=== PATIENT | female | born 1975 | race Caucasian/White ===

== ENCOUNTER 2018-03-14 09:45 | Outpatient (RCR) | payer OTHER, SELFPAY ==
--- NOTE | 2018-02-28 11:03 | PT.OTN ---
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 All documentation prior to February 26 can be found under [employer] saved data. From February 26 forward all medical record documentation will be in [employer] 6.1.
--- NOTE | 2018-02-28 11:24 | PT.OTN ---
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 She does have more anterior abdominal/ pelvic symptoms on the left side today. 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 -Patient Reported Progress Improving PT-OP-Q Treatments Start: 02/28/18 11:09 Freq: Status: Active Protocol: Activity Type Activity Date Activity User E-Sign Co-Sign Detail Recorded Client Recorded Date Recorded By Document 02/28/18 11:09 [facility] [email or web address] 02/28/18 11:22 [facility] 02/28/18 11:09 Manual Therapy Treatment [Soft Tissue Mobilization] 2 -Body Location Levator ani -Mobilization Type Myofascial Release -Intensity/Depth Moderate -Body Position Supine -Comments MFR to the left illiococcygeus musculature, contract relax with manual stretching to the left lateral chávez of the levator ani. 1 -Body Location abdominal -Mobilization Type Myofascial Release -Intensity/Depth Moderate -Body Position Supine -Comments MFR to the abdominal wall, ILU massage over the colon and MFR to the fascia over the left descending colon Self-Care/Home Management Treatment [Education] -Patient Education Home Exercise Program -Other Education dilator use instructions PT-OP-R Modalities Start: 02/28/18 11:09 Freq: Status: Active Protocol: Activity Type Activity Date Activity User E-Sign Co-Sign Detail Recorded Client Recorded Date Recorded By Document 02/28/18 11:09 [facility] [email or web address] 02/28/18 11:22 [facility] 02/28/18 11:09 Ultrasound Therapy [Treatment] left anterior abdominal fascia -Treatment Duration (minutes) 8 -Patient Position Supine -Coupling Medium Ultrasound Gel -Frequency Setting (mHz) 1 -Mode Setting Continuous -Intensity Setting (w/cm2) 1.5 -Patient Tolerance Good PT-OP-T Assessment and Plan Start: 02/28/18 11:09 Freq: Status: Active Protocol: Activity Type Activity Date Activity User E-Sign Co-Sign Detail Recorded Client Recorded Date Recorded By Document 02/28/18 11:09 [facility] [email or web address] 02/28/18 11:22 [facility] 02/28/18 11:09 Physical Therapy Assessment [Assessment Summary] -Assessment Sana has made good progress so far with pelvic floor relaxation. She was a little tighter today in the left abdominal fascia over the descending colon. She does have colitis in this region so I am not sure if she was having a flare up today. She is a jaw clencher and I think this translates to her pelvic floor as well. She is doing well with her home stretching program and adding in YOGA 2 times per week. We discussed using the dilator 2 times per week as well. Physical Therapy Plan [Frequency and Duration] -Frequency of Treatment 1x/Week [Therapeutic Interventions] -Therapeutic Interventions Home Exercise Program Manual Therapy Neuromuscular Re-education Patient/ Caregiver Education Self-Care/Home Management Soft Tissue Mobilization Therapeutic Exercises -Modalities Biofeedback Ultrasound [Next Visit Focus/Plan] -Next Visit Plan recheck pelvic floor strength with EMG biofeedback and reassess left lateral wall of the pelvic floor
--- NOTE | 2018-03-14 16:57 | PT.OTN ---
Current Diagnoses Urethral syndrome, unspecified (03/14/18) Physical Therapy Treatment Note PT-OP-A Visit Information Start: 02/28/18 11:09 Freq: Status: Active Protocol: Document 02/28/18 11:09 [facility] (Rec: 02/28/18 11:22 [facility] [email or web address]) Out-Patient Physical Therapy Visit Information Visit Information Visit Type Treatment Note Visit Start Time 09:45 Visit Stop Time 10:30 Total Visit Minutes 45 Visit Number 5 Number of T[employer] TECHNICIAN Visits 0 PT-OP-C Subjective Start: 02/28/18 11:09 Freq: Status: Active Protocol: Document 03/14/18 16:46 [facility] (Rec: 03/14/18 16:56 [facility] [email or web address]) OP-PT Subjective Patient Comments Patient Comments Sana reports she feels comfortable with her home stretching program for pelvic pain. She has been going to a yoga class and has tolerated this well but the last class she went to did a lot of planks and this caused increased neck and shoulder pain and she experienced a flare up of her left sided pelvic pain. It has calmed down today but is still sore Patient Reported Progress Improving PT-OP-I Pelvic Floor Start: 02/28/18 11:09 Freq: Status: Active Protocol: Document 02/28/18 11:09 [facility] (Rec: 02/28/18 11:22 [facility] [email or web address]) Pelvic Floor Assessment Pelvic Clock Pelvic Clock 3-6 Guarding Pelvic Clock Other some guarding present on the left lateral wall of the levator ani, this was released with manual treatment today and was much more relaxed following treatment PT-OP-Q Treatments Start: 02/28/18 11:09 Freq: Status: Active Protocol: Document 03/14/18 16:46 [facility] (Rec: 03/14/18 16:56 [facility] [email or web address]) Manual Therapy Treatment Soft Tissue Mobilization 2 Body Location Levator ani Mobilization Type Myofascial Release Intensity/Depth Moderate Body Position Supine Comments MFR to the left illiococcygeus musculature, contract relax with manual stretching to the left lateral chávez of the levator ani. 1 Body Location abdominal Mobilization Type Myofascial Release Intensity/Depth Moderate Body Position Supine Comments MFR to the abdominal wall, ILU massage over the colon and MFR to the fascia over the left descending colon PT-OP-R Modalities Start: 02/28/18 11:09 Freq: Status: Active Protocol: Document 03/14/18 16:46 [facility] (Rec: 03/14/18 16:56 [facility] [email or web address]) Ultrasound Therapy Treatment left anterior abdominal fascia Treatment Duration (minutes) 8 Patient Position Supine Coupling Medium Ultrasound Gel Frequency Setting (mHz) 1 Mode Setting Continuous Intensity Setting (w/cm2) 1.5 Patient Tolerance Good PT-OP-T Assessment and Plan Start: 02/28/18 11:09 Freq: Status: Active Protocol: Document 03/14/18 16:46 [facility] (Rec: 03/14/18 16:56 [facility] [email or web address]) Physical Therapy Assessment Progress Towards Goals Progress Comments Sana has made overall good progress and was seen for a total of 7 visits in PT. She has tried to go back to exercises classes at the gym but some of them are too aggressive and she ends up in more pain. We discussed ways to modify if she wants to continue doing classes at the gym but to hold off on classes that cause her pain. Overall Sana's resting today has been reduced in the pelvic floor and she is using the dilator when needed for self release of the pelvic floor. She is undergoing jaw surgery in the next few weeks so she will be discharged from PT at this time. I would be happy to continue care for her in the future should she need any further PT. Physical Therapy Plan Discharge Physical Therapy Discharge Comments Discharge as the patient has completed her current program and is independent with a home program
== END 2018-06-03 14:39 ==
LOC: PHYS 09:45
PROVIDERS: Family Provider Obstetrics & Gynecology; PCP Obstetrics & Gynecology; Visit Provider Obstetrics & Gynecology
DX: N34.3 Urethral syndrome, unspecified (principal)
CPT/HCPCS: 97035; 97140

== ENCOUNTER 2018-04-29 12:16 | Emergency (ER) | payer OTHER, SELFPAY ==
--- NOTE | 2018-04-29 12:16 | ED_ITS ---
HPI - Abdominal Pain <HUDSON Saavedra - Last Filed: 04/29/18 22:32> General Chief Complaint: Abdominal Pain Stated Complaint: ABDOMINAL PAIN, LEFT SIDE Time Seen by Provider: 04/29/18 12:16 History of Present Illness HPI narrative: 42-year-old female here for complaint of having lower bilateral abdominal pain over the past 6 days. She states during that timeframe she has had chills although she does not know if she has had a fever. She denies any urinary symptoms. She reports that her last bowel movement was earlier today and was normal. No flank pain. She reports that she recently had surgery 1 month ago where she had TMJ repair where they did take some tissue from her abdomen to complete the TMJ repair. She denies any complications with either incision areas. She denies any trauma to the abdomen. She denies any abnormal vaginal discharge or bleeding. MD complaint: abdominal pain Related Data Home Medications Medication Instructions Recorded Confirmed bupropion HCl [Wellbutrin XL] 300 mg PO QDAY #0 09/28/17 04/29/18 clonazepam [Klonopin] 0.5 mg PO QPM #0 09/28/17 04/29/18 sulfasalazine 2 tab PO BID #0 09/28/17 04/29/18 ibuprofen 1 dose PO PRN PRN 04/29/18 04/29/18 montelukast [Singulair] 10 mg PO QPM 04/29/18 04/29/18 oxycodone-acetaminophen 1 tab PO Q4H PRN 04/29/18 04/29/18 Previous Rx's Medication Instructions Recorded etonogestrel-ethinyl estradiol 1 units VAGINAL SI #1 units 10/17/17 [NuvaRing] ciprofloxacin HCl 500 mg PO BID #14 tab 04/29/18 metronidazole 500 mg PO TID #21 tab 04/29/18 Allergies Allergy/AdvReac Type Severity Reaction Status Date / Time No Known Allergies Allergy Uncoded 02/06/18 12:49 Review of Systems <HUDSON Saavedra - Last Filed: 04/29/18 22:32> Constitutional Reports chills, Denies lethargy and Denies weakness Eyes Denies change in vision, Denies eye discharge, Denies irritation and Denies loss of vision ENT Ears, Nose, Mouth, and Throat: Denies change in voice, Denies neck pain and Denies sore throat Cardiovascular Denies chest pain, Denies irregular heart rhythm, Denies lightheadedness, Denies palpitations, Denies dyspnea, Denies dyspnea on exertion and Denies orthopnea Respiratory Denies cough, Denies dyspnea, Denies dyspnea on exertion and Denies wheezing Gastrointestinal Gastrointestinal: Reports abdominal pain, Denies change in bowel habits, Denies diarrhea, Denies nausea and Denies vomiting Genitourinary Denies hematuria, Denies flank pain, Denies urinary incontinence and Denies urinary urgency Musculoskeletal Denies neck pain Integumentary/Breasts Denies pruritus, Denies erythema, Denies rash and Denies wounds Neurologic Denies confusion, Denies loss of vision and Denies weakness Psychiatric Denies anxiety, Denies confusion, Denies depression, Denies homicidal ideation and Denies suicidal ideation Endocrine Denies palpitations Allergic/Immunologic Denies wheezing Exam <HUDSON Saavedra - Last Filed: 04/29/18 22:32> Initial Vital Signs Initial Vital Signs: Vital Signs Temperature 96.9 F L 04/29/18 12:47 Pulse Rate 88 04/29/18 12:47 Respiratory Rate 13 04/29/18 12:47 Blood Pressure 128/42 H 04/29/18 12:47 Pulse Oximetry 100 04/29/18 12:47 Const General: cooperative and well developed Nutritional Appearance: well nourished Orientation: alert, awake, oriented x3 and not confused [facility] Mouth: oral mucosae normal and moist mucous membranes Eyes Conjunctivae: conjunctivae normal Sclera: sclerae normal Pupils: PERRL EOM: EOM intact bilaterally Resp Effort & Inspection: normal respiratory effort, able to speak in complete sentences, no respiratory distress and no use of accessory muscles Auscultation: clear to auscultation bilaterally, no rales, no rhonchi and no wheezes Cardio Rate: regular rate Rhythm: regular rhythm Heart Sounds: no click, no gallops, no murmurs and no rubs GI Inspection: non-distended Palpation: soft, no hepatosplenomegaly, No guarding, No pulsatile mass and tender (Bilateral lower quadrant tenderness on palpation) Auscultation: normal bowel sounds General: No CVA tenderness Skin General: no rashes or lesions noted, No jaundice and No petechiae <Charanjit Dominguez DO - Last Filed: 05/06/18 07:13> Initial Vital Signs Initial Vital Signs: Vital Signs Temperature 96.9 F L 04/29/18 12:47 Pulse Rate 88 04/29/18 12:47 Respiratory Rate 13 04/29/18 12:47 Blood Pressure 128/42 H 04/29/18 12:47 Pulse Oximetry 100 04/29/18 12:47 Course <HUDSON Saavedra - Last Filed: 04/29/18 22:32> Orders Ordered: Discontinued Medications Hydromorphone HCl (Dilaudid) 0.5 mg IV NOW ONE Stop: 04/29/18 12:52 Last Admin: 04/29/18 13:32 Dose: 0.5 mg Sodium Chloride (Normal Saline 0.9%) 1,000 mls @ 1,000 mls/hr IV BOLUS ONE Stop: 04/29/18 13:50 Last Infusion: 04/29/18 15:08 Dose: 0 mls/hr Infusion: 04/29/18 14:30 Dose: 1,000 mls/hr Infusion: 04/29/18 14:07 Dose: 0 mls/hr Admin: 04/29/18 13:32 Dose: 1,000 mls/hr Ondansetron HCl (Zofran) 4 mg IV NOW ONE Stop: 04/29/18 12:52 Last Admin: 04/29/18 13:32 Dose: 4 mg Vital Signs - 8 hr 04/29/18 12:47 04/29/18 14:22 Temperature 96.9 F L Pulse Rate 88 76 Respiratory Rate 13 14 Blood Pressure 128/42 H Blood Pressure [Right Arm] 129/56 H Pulse Oximetry 100 100 <Charanjit Dominguez DO - Last Filed: 05/06/18 07:13> Orders Ordered: Discontinued Medications Hydromorphone HCl (Dilaudid) 0.5 mg IV NOW ONE Stop: 04/29/18 12:52 Last Admin: 04/29/18 13:32 Dose: 0.5 mg Sodium Chloride (Normal Saline 0.9%) 1,000 mls @ 1,000 mls/hr IV BOLUS ONE Stop: 04/29/18 13:50 Last Infusion: 04/29/18 15:08 Dose: 0 mls/hr Infusion: 04/29/18 14:30 Dose: 1,000 mls/hr Infusion: 04/29/18 14:07 Dose: 0 mls/hr Admin: 04/29/18 13:32 Dose: 1,000 mls/hr Ondansetron HCl (Zofran) 4 mg IV NOW ONE Stop: 04/29/18 12:52 Last Admin: 04/29/18 13:32 Dose: 4 mg Vital Signs - 8 hr 04/29/18 12:47 04/29/18 14:22 Temperature 96.9 F L Pulse Rate 88 76 Respiratory Rate 13 14 Blood Pressure 128/42 H Blood Pressure [Right Arm] 129/56 H Pulse Oximetry 100 100 MDM - Abdominal Pain <HUDSON Saavedra - Last Filed: 04/29/18 22:32> Lab Data Result diagrams: 04/29/18 13:24 04/29/18 13:24 Lab Results 04/29/18 04/29/18 Range/Units 13:24 13:24 WBC 5.6 (4.5-11.0) X10^3/uL RBC 3.60 L (4.0-5.2) X10^6/uL Hgb 11.3 L (12.0-16.0) g/dL Hct 33.2 L (36-46) % MCV 92.2 (80-100) fL MCH 31.5 (26-34) PG MCHC 34.1 (30-36) % RDW 11.9 (11.6-14.8) % Plt Count 240 (150-400) X10^3/uL Neut % (Auto) 66.6 (50-75) % Lymph % (Auto) 24.0 L (25-40) % Divide % (Auto) 6.9 (3-14) % Eos % (Auto) 2.0 (2-4) % Baso % (Auto) 0.5 (0-2) % Neut # (Auto) 3700 (0825-3044) /uL Sodium 140 (137-145) mmol/L Potassium 3.9 (3.4-5.1) mmol/L Chloride 111 H (98-107) mmol/L Carbon Dioxide 23 (22-32) mmol/L BUN 6 L (7-17) mg/dL Creatinine 0.70 (0.52-1.04) mg/dL Estimated GFR > 60.0 (>60) mL/min BUN/Creatinine Ratio 8.6 (6-22) Glucose 84 (70-100) mg/dL Calcium 8.7 (8.4-10.2) mg/dL Total Bilirubin 0.4 (0.2-1.3) mg/dL AST 17 (14-36) IU/L ALT 28 (9-52) IU/L Alkaline Phosphatase 84 (38-126) U/L Total Protein 6.2 L (6.3-8.2) g/dL Albumin 3.3 L (3.5-5.0) g/dL Globulin 2.9 (1.7-4.1) g/dL Albumin/Globulin Ratio 1.1 (1.0-2.8) Lipase 249 (23-300) U/L Point of care testing: Point of Care Testing Test Results Negative Urine Dip Bedside Urine Glucose Negative Bedside Urine Bilirubin - Negative Bedside Urine Ketone - Negative Urine Specific Ripley 1.020 Bedside Urine Occult Blood - Negative Bedside Urine pH 6.0 Bedside Urine Protein - Negative Bedside Urine Urobilinogen - Negative Bedside Urine Nitrite - Negative Bedside Urine Leukocytes - Negative Esterase Imaging Data CT scan - abdomen: Radiologist's impression: PROCEDURE: CT ABDOMEN PELVIS W CON INDICATIONS: Bilateral lower abdominal pain TECHNIQUE: After the administration of oral and intravenous contrast, 5 mm thick sections acquired from the diaphragms to the symphysis. 5 mm thick coronal and sagittal reformats were performed. For radiation dose reduction, the following was used: automated exposure control, adjustment of mA and/or kV according to patient size. COMPARISON: [facility], CT, ABDOMEN/PELVIS WITH CONTRAST, 09/28/2017, 13: 45. FINDINGS: Image quality: Diagnostic. ABDOMEN: Lung bases: Lung bases are clear. Heart size is normal. Solid organs: The liver, spleen, adrenals, pancreas, and kidneys are similar to the previous examination. A small cyst involving the left hepatic lobe is unchanged. The gallbladder does not appear to be inflamed. There is no hydronephrosis of the kidneys. Mild prominence of the right ureter is present. No ureteral calculi are evident. Peritoneum and bowel: The stomach, duodenum and remainder of the small bowel loops are nondilated. Moderate residual stool is seen within the colon. However, the sigmoid colon is decompressed, exaggerating the appearance of the wall of the sigmoid colon. No definitive surrounding mesenteric inflammation is evident. The appendix is not definitely seen. There is no bowel obstruction. No free fluid, loculated fluid collection or free air is evident. There is a small fat-containing periumbilical hernia. Nodes and vessels: No retroperitoneal or mesenteric adenopathy. Aorta and inferior vena cava are normal in caliber. Bones: No acute fractures or suspicious osseous lesions are identified. No significant degenerative changes of the imaged spine are present. PELVIS: Genitourinary: Bladder wall thickness is normal. The uterus and ovaries do not appear to be enlarged. No definite ovarian cysts are appreciated. A pessary device appears to be present within the vagina. Intrauterine contraceptive device has been removed in the interim. Miscellaneous: No inguinal hernias or adenopathy. No loculated fluid collections are evident. There is no free air. No free fluid is evident. Bones: No suspicious bony lesions. No acute pelvic fractures are evident. IMPRESSION: 1. Unremarkable abdomen and pelvis CT. No definite acute abnormality is suspected were evident. 2. Mild prominence of the wall of the sigmoid colon likely is related to incomplete distention. Colitis may have this appearance. There is no bowel obstruction. Please correlate clinically. 3. No hydronephrosis of the kidneys. 4. Simple hepatic cyst is unchanged. Dictated by: Jaison Arauz M.D. on 04/29/2018 at 13:30 Approved by: Jaison Arauz M.D. on 04/29/2018 at 13:35 MDM Narrative Medical decision making narrative: CBC shows mild anemia otherwise is unremarkable. Chem panel and lipase were obtained and unremarkable. Negative POC for urinalysis and . CT of the abdomen was obtained and shows some thickening of the sigmoid colon indicating possible colitis. Patient states that she has a history of ulcerative colitis. She is currently waiting to get in to Gastroenterology. Will empirically treat with Cipro and metronidazole. Currently used pain management regimen as needed for any discomfort. Follow up with primary care provider in the next few weeks. Follow up with Gastroenterology. For any worsening symptoms return to the emergency room. <Charanjit Dominguez DO - Last Filed: 05/06/18 07:13> Lab Data Lab Results 04/29/18 04/29/18 Range/Units 13:24 13:24 WBC 5.6 (4.5-11.0) X10^3/uL RBC 3.60 L (4.0-5.2) X10^6/uL Hgb 11.3 L (12.0-16.0) g/dL Hct 33.2 L (36-46) % MCV 92.2 (80-100) fL MCH 31.5 (26-34) PG MCHC 34.1 (30-36) % RDW 11.9 (11.6-14.8) % Plt Count 240 (150-400) X10^3/uL Neut % (Auto) 66.6 (50-75) % Lymph % (Auto) 24.0 L (25-40) % Divide % (Auto) 6.9 (3-14) % Eos % (Auto) 2.0 (2-4) % Baso % (Auto) 0.5 (0-2) % Neut # (Auto) 3700 (9722-6814) /uL Sodium 140 (137-145) mmol/L Potassium 3.9 (3.4-5.1) mmol/L Chloride 111 H (98-107) mmol/L Carbon Dioxide 23 (22-32) mmol/L BUN 6 L (7-17) mg/dL Creatinine 0.70 (0.52-1.04) mg/dL Estimated GFR > 60.0 (>60) mL/min BUN/Creatinine Ratio 8.6 (6-22) Glucose 84 (70-100) mg/dL Calcium 8.7 (8.4-10.2) mg/dL Total Bilirubin 0.4 (0.2-1.3) mg/dL AST 17 (14-36) IU/L ALT 28 (9-52) IU/L Alkaline Phosphatase 84 (38-126) U/L Total Protein 6.2 L (6.3-8.2) g/dL Albumin 3.3 L (3.5-5.0) g/dL Globulin 2.9 (1.7-4.1) g/dL Albumin/Globulin Ratio 1.1 (1.0-2.8) Lipase 249 (23-300) U/L Point of care testing: Point of Care Testing Test Results Negative Urine Dip Bedside Urine Glucose Negative Bedside Urine Bilirubin - Negative Bedside Urine Ketone - Negative Urine Specific Ripley 1.020 Bedside Urine Occult Blood - Negative Bedside Urine pH 6.0 Bedside Urine Protein - Negative Bedside Urine Urobilinogen - Negative Bedside Urine Nitrite - Negative Bedside Urine Leukocytes - Negative Esterase Discharge Plan Departure Patient Disposition: Home, Self-Care Clinical Impression: Abdominal pain Discharge Date/Time: 04/29/18 15:09 Interventions: ED Discharge Assessment Last Done: 04/29/18 15:08 Instructions: DI for Abdominal Pain-Adult Activity Restrictions/Additional Instructions: Laboratory results today shows a mild anemia otherwise are unremarkable. CT of the abdomen was obtained and shows some mild thickening of the sigmoid colon indicating possible colitis. You are placed on antibiotics to cover for infection use as directed. Use currently prescribed pain management regimen as needed for any discomfort. Follow up with primary care provider in the next couple of days for re-evaluation. Follow up with Gastroenterology. For any worsening symptoms return to the emergency room. Prescriptions were electronically sent to [facility] in [place] Prescriptions: New metronidazole 500 mg tablet 500 mg PO TID Qty: 21 RF: 0 ciprofloxacin HCl 500 mg tablet 500 mg PO BID Qty: 14 RF: 0 No Action bupropion HCl [Wellbutrin XL] 300 MG tablet extended release 24 hr 300 mg PO QDAY Qty: 0 RF: 0 clonazepam [Klonopin] 0.5 MG tablet 0.5 mg PO QPM Qty: 0 RF: 0 sulfasalazine 500 MG tablet 2 tab PO BID Qty: 0 RF: 0 etonogestrel-ethinyl estradiol [NuvaRing] 1 EACH ring 1 units Vaginal SI Qty: 1 RF: 11 ibuprofen 200 mg Tablet 1 dose PO PRN PRN (Reason: Pain, Mild) RF: 0 montelukast [Singulair] 10 mg Tablet 10 mg PO QPM RF: 0 oxycodone-acetaminophen 5-325 mg tablet 1 tab PO Q4H PRN (Reason: Pain, Severe) RF: 0 <Charanjit Dominguez DO - Last Filed: 05/06/18 07:13> [facility] Attending Jean Attestation: I was available for consultation during this patient's emergency department encounter
[2018-04-29 12:47] VITALS: BP 128/42; PULSE 88; RESP 13; TEMP 36.1; O2SAT 100
[2018-04-29] MEDS: ONDANSETRON 4 MG/2 ML INJ IV (13:32)
[2018-04-29] MEDS: HYDROMORPHONE 1 MG INJ 0.5 MG IV (13:32)
[2018-04-29] MEDS: SODIUM CHLORIDE 0.9% 1,000 ML 1000 ML IV (13:32)
[2018-04-29 13:39] LABS: Add Manual Diff / Slide Review NO; Basophils Percent Auto 0.5 % (0-2); Hematocrit 33.2 % (36-46); Hemoglobin 11.3 g/dL (12.0-16.0); Mean Corpuscular HGB Conc 34.1 % (30-36); Mean Corpuscular Hemoglobin 31.5 PG (26-34); Mean Corpuscular Volume 92.2 fL (80-100); Monocytes Percent Auto 6.9 % (3-14); Neutrophils Absolute Auto 3700 /uL (3000-5900); Neutrophils Percent Auto 66.6 % (50-75); Platelet Count 240 X10^3/uL (150-400); Red Cell Distribution Width 11.9 % (11.6-14.8); White Blood Cell Count 5.6 X10^3/uL (4.5-11.0)
[2018-04-29 13:50] LABS: Alanine Aminotransferase 28 IU/L (9-52); Albumin 3.3 g/dL (3.5-5.0); Albumin Globulin Ratio 1.1 (1.0-2.8); Alkaline Phosphatase 84 U/L (38-126); Aspartate Aminotransferase 17 IU/L (14-36); BUN Creatinine Ratio 8.6 (6-22); Bilirubin Total 0.4 mg/dL (0.2-1.3); Blood Urea Nitrogen 6 mg/dL (7-17); Calcium 8.7 mg/dL (8.4-10.2); Carbon Dioxide 23 mmol/L (22-32); Chloride 111 mmol/L (98-107); Estimated Glomerular Filt Rate > 60.0 mL/min (>60); Globulin 2.9 g/dL (1.7-4.1); Glucose 84 mg/dL (70-100); HEMOLYSIS < 15 (0-50); Lipase 249 U/L (23-300); Potassium 3.9 mmol/L (3.4-5.1); Sodium 140 mmol/L (137-145); Total Protein 6.2 g/dL (6.3-8.2)
--- NOTE | 2018-04-29 13:58 | DI.CT.S_ITS ---
PROCEDURE: CT ABDOMEN PELVIS W CON INDICATIONS: Bilateral lower abdominal pain TECHNIQUE: After the administration of oral and intravenous contrast, 5 mm thick sections acquired from the diaphragms to the symphysis. 5 mm thick coronal and sagittal reformats were performed. For radiation dose reduction, the following was used: automated exposure control, adjustment of mA and/or kV according to patient size. COMPARISON: [facility], CT, ABDOMEN/PELVIS WITH CONTRAST, 09/28/2017, 13:45. FINDINGS: Image quality: Diagnostic. ABDOMEN: Lung bases: Lung bases are clear. Heart size is normal. Solid organs: The liver, spleen, adrenals, pancreas, and kidneys are similar to the previous examination. A small cyst involving the left hepatic lobe is unchanged. The gallbladder does not appear to be inflamed. There is no hydronephrosis of the kidneys. Mild prominence of the right ureter is present. No ureteral calculi are evident. Peritoneum and bowel: The stomach, duodenum and remainder of the small bowel loops are nondilated. Moderate residual stool is seen within the colon. However, the sigmoid colon is decompressed, exaggerating the appearance of the wall of the sigmoid colon. No definitive surrounding mesenteric inflammation is evident. The appendix is not definitely seen. There is no bowel obstruction. No free fluid, loculated fluid collection or free air is evident. There is a small fat-containing periumbilical hernia. Nodes and vessels: No retroperitoneal or mesenteric adenopathy. Aorta and inferior vena cava are normal in caliber. Bones: No acute fractures or suspicious osseous lesions are identified. No significant degenerative changes of the imaged spine are present. PELVIS: Genitourinary: Bladder wall thickness is normal. The uterus and ovaries do not appear to be enlarged. No definite ovarian cysts are appreciated. A pessary device appears to be present within the vagina. Intrauterine contraceptive device has been removed in the interim. Miscellaneous: No inguinal hernias or adenopathy. No loculated fluid collections are evident. There is no free air. No free fluid is evident. Bones: No suspicious bony lesions. No acute pelvic fractures are evident. IMPRESSION: 1. Unremarkable abdomen and pelvis CT. No definite acute abnormality is suspected were evident. 2. Mild prominence of the wall of the sigmoid colon likely is related to incomplete distention. Colitis may have this appearance. There is no bowel obstruction. Please correlate clinically. 3. No hydronephrosis of the kidneys. 4. Simple hepatic cyst is unchanged. Dictated by: Jaison Arauz M.D. on 04/29/2018 at 13:30 Approved by: Jaison Arauz M.D. on 04/29/2018 at 13:35
[2018-04-29 14:22] VITALS: BP 129/56; PULSE 76; RESP 14; O2SAT 100
== END 2018-04-29 15:09 | disposition home or self-care (01) ==
PROVIDERS: Emergency Provider Nurse Practitioner Family; Family Provider Family Medicine; PCP Family Medicine
DX: R10.9 Unspecified abdominal pain (principal)
CPT/HCPCS: 36591; 74177; 80053; 81003; 81025; 83690; 85025; 96361; 96374; 96375; 99283; 99285; J1170; J2405; Q9967

== ENCOUNTER 2018-07-19 20:32 | Emergency (ER) | payer OTHER, SELFPAY ==
[2018-07-19 20:37] VITALS: BP 129/72; PULSE 96; RESP 18; TEMP 36.2; O2SAT 95
--- NOTE | 2018-07-19 20:45 | ED.LOWEXIN ---
HPI - Extremity Injury (Lower) <HUDSON Saavedra - Last Filed: 07/19/18 22:31> General Chief Complaint: Extremity Injury, Lower Stated Complaint: PAIN LOWER LEG AND CALF AREA Time Seen by Provider: 07/19/18 20:45 Source: patient Mode of arrival: ambulatory Limitations: no limitations History of Present Illness HPI Narrative: 42-year-old female with history of asthma and is a nonsmoker. Here for complaint having pain to her right calf and off the past few weeks. She reports that today she had worsening pain today to the area she denies any trauma to the area. Reports increased pain with ambulation. She denies any swelling to the area. No erythema. No increased temperature. Patient is currently on control. she also reports that she has not had her inhaler treatment today for her asthma as her prescription got sent elsewhere. She states she has durable of a pickup prescription tomorrow. She feels like she has had needed increased effort to take breast. She denies any wheezing. No fevers no chills. She denies any shortness of breath. No chest pain. Related Data Home Medications Medication Instructions Recorded Confirmed bupropion HCl [Wellbutrin XL] 300 mg PO QDAY #0 09/28/17 04/29/18 clonazepam [Klonopin] 0.5 mg PO QPM #0 09/28/17 04/29/18 sulfasalazine 2 tab PO BID #0 09/28/17 04/29/18 ibuprofen 1 dose PO PRN PRN 04/29/18 04/29/18 montelukast [Singulair] 10 mg PO QPM 04/29/18 04/29/18 oxycodone-acetaminophen 1 tab PO Q4H PRN 04/29/18 04/29/18 Previous Rx's Medication Instructions Recorded etonogestrel-ethinyl estradiol 1 units VAGINAL SI #1 units 10/17/17 [NuvaRing] ciprofloxacin HCl 500 mg PO BID #14 tab 04/29/18 metronidazole 500 mg PO TID #21 tab 04/29/18 Allergies Allergy/AdvReac Type Severity Reaction Status Date / Time No Known Allergies Allergy Uncoded 02/06/18 12:49 Review of Systems <HUDSON Saavedra - Last Filed: 07/19/18 22:31> Constitutional Denies chills, Denies fever(s), Denies lethargy and Denies weakness Eyes Denies change in vision, Denies eye discharge, Denies irritation and Denies loss of vision ENT Ears, Nose, Mouth, and Throat: Denies change in voice, Denies neck pain, Denies sore throat and Denies throat swelling Cardiovascular Denies chest pain, Denies irregular heart rhythm, Denies lightheadedness, Denies palpitations and Denies orthopnea Respiratory Reports as per HPI and Denies wheezing Gastrointestinal Gastrointestinal: Denies abdominal pain, Denies change in bowel habits, Denies diarrhea, Denies nausea and Denies vomiting Genitourinary Denies hematuria, Denies flank pain, Denies urinary incontinence and Denies urinary urgency Musculoskeletal Denies neck pain Comments: Pain to right calf Integumentary/Breasts Denies pruritus, Denies erythema, Denies rash and Denies wounds Neurologic Denies confusion, Denies loss of vision and Denies weakness Psychiatric Denies anxiety, Denies confusion, Denies depression, Denies homicidal ideation and Denies suicidal ideation Endocrine Denies palpitations Hematologic/Lymphatic Denies easy bruising Allergic/Immunologic Denies urticaria, Denies throat swelling and Denies wheezing Exam <HUDSON Saavedra - Last Filed: 07/19/18 22:31> Initial Vital Signs Initial Vital Signs: Vital Signs Temperature 97.2 F L 07/19/18 20:37 Pulse Rate 96 H 07/19/18 20:37 Respiratory Rate 18 07/19/18 20:37 Blood Pressure 129/72 07/19/18 20:37 Pulse Oximetry 95 07/19/18 20:37 Const General: cooperative and well developed Nutritional Appearance: well nourished Orientation: alert, awake, oriented x3 and not confused [facility] Mouth: oral mucosae normal and oropharynx normal Eyes Conjunctivae: conjunctivae normal Sclera: sclerae normal Pupils: PERRL EOM: EOM intact bilaterally Chest Chest: normal inspection of the chest Resp Effort & Inspection: normal respiratory effort, able to speak in complete sentences, no respiratory distress and no use of accessory muscles Auscultation: clear to auscultation bilaterally, no rales, no rhonchi and no wheezes Cardio Rate: regular rate Rhythm: regular rhythm Heart Sounds: no click, no gallops, no murmurs and no rubs Pulses: normal peripheral pulses Skin General: no rashes or lesions noted, No jaundice and No petechiae Neuro General: alert, oriented x3, gait normal and no focal motor deficits Speech: speech normal Extrem Other: tenderness to palpation to right calf area. No swelling. No erythema not warm to the touch. Distal sensation is intact. Distal pulses are intact. Distal range of motion is intact. Homans sign positive <DO Dionne Reyes Last Filed: 07/20/18 05:37> Initial Vital Signs Initial Vital Signs: Vital Signs Temperature 97.2 F L 07/19/18 20:37 Pulse Rate 96 H 07/19/18 20:37 Respiratory Rate 18 07/19/18 20:37 Blood Pressure 129/72 07/19/18 20:37 Pulse Oximetry 95 07/19/18 20:37 Course <HUDSON Saavedra - Last Filed: 07/19/18 22:31> Orders Ordered: ED Orders 07/19/18 20:53 US periph venous low extrem rt Stat 07/19/18 21:18 Complete Blood Count AUTO DIFF Stat Comprehensive Metabolic Panel Stat Discontinued Medications Albuterol/Ipratropium (Duoneb) 3 ml INH NOW ONE Stop: 07/19/18 20:54 Last Admin: 07/19/18 21:19 Dose: 3 ml Vital Signs - 8 hr 07/19/18 22:06 Pulse Rate 78 Respiratory Rate 16 Blood Pressure 124/81 Pulse Oximetry 99 <DO Dionne Reyes Last Filed: 07/20/18 05:37> Orders Ordered: ED Orders 07/19/18 20:53 US periph venous low extrem rt Stat 07/19/18 21:18 Complete Blood Count AUTO DIFF Stat Comprehensive Metabolic Panel Stat Discontinued Medications Albuterol/Ipratropium (Duoneb) 3 ml INH NOW ONE Stop: 07/19/18 20:54 Last Admin: 07/19/18 21:19 Dose: 3 ml Vital Signs - 8 hr 07/19/18 22:06 Pulse Rate 78 Respiratory Rate 16 Blood Pressure 124/81 Pulse Oximetry 99 MDM - Extremity Injury (Lower) <HUDSON Saavedra - Last Filed: 07/19/18 22:31> Lab Data Result diagrams: 07/19/18 21:18 07/19/18 21:18 Lab Results 07/19/18 07/19/18 Range/Units 21:18 21:18 WBC 6.9 (4.5-11.0) X10^3/uL RBC 3.88 L (4.0-5.2) X10^6/uL Hgb 11.8 L (12.0-16.0) g/dL Hct 34.6 L (36-46) % MCV 89.3 (80-100) fL MCH 30.6 (26-34) PG MCHC 34.2 (30-36) % RDW 13.0 (11.6-14.8) % Plt Count 241 (150-400) X10^3/uL Neut % (Auto) 55.6 (50-75) % Lymph % (Auto) 34.0 (25-40) % [place] % (Auto) 7.2 (3-14) % Eos % (Auto) 2.9 (2-4) % Baso % (Auto) 0.3 (0-2) % Neut # (Auto) 3800 (5755-7626) /uL Sodium 141 (137-145) mmol/L Potassium 3.5 (3.4-5.1) mmol/L Chloride 105 (98-107) mmol/L Carbon Dioxide 25 (22-32) mmol/L BUN 7 (7-17) mg/dL Creatinine 0.70 (0.52-1.04) mg/dL Estimated GFR > 60.0 (>60) mL/min BUN/Creatinine Ratio 10.0 (6-22) Glucose 125 H (70-100) mg/dL Calcium 8.6 (8.4-10.2) mg/dL Total Bilirubin 0.3 (0.2-1.3) mg/dL AST 22 (14-36) IU/L ALT 24 (9-52) IU/L Alkaline Phosphatase 69 (38-126) U/L Total Protein 6.2 L (6.3-8.2) g/dL Albumin 3.5 (3.5-5.0) g/dL Globulin 2.7 (1.7-4.1) g/dL Albumin/Globulin Ratio 1.3 (1.0-2.8) Imaging Data Venous US: Radiologist's impression: [address] [address] Ultrasound Report Signed Patient: Sana Qureshi LMR#: [id number] : 1975Acct:[id number] Age/Sex: 42 / FDate of Service: 07/19/18 Loc: ED Accession Number: [id number] Procedure: US periph venous low extrem rt Ordering Provider: Avtar Oliva PROCEDURE: US PERIPH VENOUS LOW EXTREM RT INDICATIONS: Pain to right calf on off for past several weeks TECHNIQUE: Real-time imaging, as well as color and pulse Doppler interrogation, were performed of the lower extremity deep veins from the inguinal ligament to the popliteal fossa. COMPARISON: None. FINDINGS: The deep veins are normally compressible, and free of intraluminal thrombus. Color and pulse Doppler demonstrate normal phasic intraluminal flow. There is normal augmentation response to distal compression maneuver. IMPRESSION: No evidence of deep vein thrombosis involving the right lower extremity. Dictated by: Jesusita Reza MD, PhD on 07/19/2018 at 21:32 Approved by: Jesusita Reza MD, PhD on 07/19/2018 at 21:33 MDM Narrative Medical decision making narrative: CBC and Chem panel were obtained were unremarkable. Doppler ultrasound right lower extremity was obtained was negative for any blood clots. Patient better after having nebulizer treatment. will treat for sprain into the right calf muscle. [id number] ibuprofen as needed for any discomfort. Rest area. Follow up with primary care provider next week. Use currently prescribed medications for as as directed. For any worsening symptoms return emergency room. <Lisa Jeffries, - Last Filed: 07/20/18 05:37> Lab Data Lab Results 07/19/18 07/19/18 Range/Units 21:18 21:18 WBC 6.9 (4.5-11.0) X10^3/uL RBC 3.88 L (4.0-5.2) X10^6/uL Hgb 11.8 L (12.0-16.0) g/dL Hct 34.6 L (36-46) % MCV 89.3 (80-100) fL MCH 30.6 (26-34) PG MCHC 34.2 (30-36) % RDW 13.0 (11.6-14.8) % Plt Count 241 (150-400) X10^3/uL Neut % (Auto) 55.6 (50-75) % Lymph % (Auto) 34.0 (25-40) % [place] % (Auto) 7.2 (3-14) % Eos % (Auto) 2.9 (2-4) % Baso % (Auto) 0.3 (0-2) % Neut # (Auto) 3800 (1206-5193) /uL Sodium 141 (137-145) mmol/L Potassium 3.5 (3.4-5.1) mmol/L Chloride 105 (98-107) mmol/L Carbon Dioxide 25 (22-32) mmol/L BUN 7 (7-17) mg/dL Creatinine 0.70 (0.52-1.04) mg/dL Estimated GFR > 60.0 (>60) mL/min BUN/Creatinine Ratio 10.0 (6-22) Glucose 125 H (70-100) mg/dL Calcium 8.6 (8.4-10.2) mg/dL Total Bilirubin 0.3 (0.2-1.3) mg/dL AST 22 (14-36) IU/L ALT 24 (9-52) IU/L Alkaline Phosphatase 69 (38-126) U/L Total Protein 6.2 L (6.3-8.2) g/dL Albumin 3.5 (3.5-5.0) g/dL Globulin 2.7 (1.7-4.1) g/dL Albumin/Globulin Ratio 1.3 (1.0-2.8) Discharge Plan Departure Patient Disposition: Home Clinical Impression: Strain of muscle of posterior right lower leg Discharge Date/Time: 07/19/18 22:10 Interventions: ED Discharge Assessment Last Done: 07/19/18 22:06 Instructions: DI for Calf Muscle Strain Activity Restrictions/Additional Instructions: laboratory results today were unremarkable. Ultrasound was negative for any clots to the right lower extremity. Signs and symptoms presents muscle strain. Use [id number] ibuprofen as needed for any discomfort. Rest area. Plenty of fluids. Follow up with primary care provider next week. Use currently prescribed asthma medications as directed. For any worsening symptoms return emergency room. Prescriptions: No Action bupropion HCl [Wellbutrin XL] 300 MG tablet extended release 24 hr 300 mg PO QDAY Qty: 0 RF: 0 clonazepam [Klonopin] 0.5 MG tablet 0.5 mg PO QPM Qty: 0 RF: 0 sulfasalazine 500 MG tablet 2 tab PO BID Qty: 0 RF: 0 etonogestrel-ethinyl estradiol [NuvaRing] 1 EACH ring 1 units Vaginal SI Qty: 1 RF: 11 ibuprofen 200 mg Tablet 1 dose PO PRN PRN (Reason: Pain, Mild) RF: 0 montelukast [Singulair] 10 mg Tablet 10 mg PO QPM RF: 0 oxycodone-acetaminophen 5-325 mg tablet 1 tab PO Q4H PRN (Reason: Pain, Severe) RF: 0 metronidazole 500 mg tablet 500 mg PO TID Qty: 21 RF: 0 ciprofloxacin HCl 500 mg tablet 500 mg PO BID Qty: 14 RF: 0 Referrals: Gm Leonardo DO [Primary Care Provider] - <Lisa Jeffries DO - Last Filed: 07/20/18 05:37> Cosign ED Attending Cosignature Attestation: I was immediately available in the department for consultation. Documentation has been reviewed. I agree with assessment and plan.
--- NOTE | 2018-07-19 20:53 | DI.US.S_ITS ---
PROCEDURE: US PERIPH VENOUS LOW EXTREM RT INDICATIONS: Pain to right calf on off for past several weeks TECHNIQUE: Real-time imaging, as well as color and pulse Doppler interrogation, were performed of the lower extremity deep veins from the inguinal ligament to the popliteal fossa. COMPARISON: None. FINDINGS: The deep veins are normally compressible, and free of intraluminal thrombus. Color and pulse Doppler demonstrate normal phasic intraluminal flow. There is normal augmentation response to distal compression maneuver. IMPRESSION: No evidence of deep vein thrombosis involving the right lower extremity. Dictated by: Jesusita Reza MD, PhD on 07/19/2018 at 21:32 Approved by: Jesusita Reza MD, PhD on 07/19/2018 at 21:33
--- NOTE | 2018-07-19 21:06 | ED_ITS ---
HPI - Extremity Injury (Lower) <HUDSON Saavedra - Last Filed: 07/19/18 22:31> General Chief Complaint: Extremity Injury, Lower Stated Complaint: PAIN LOWER LEG AND CALF AREA Time Seen by Provider: 07/19/18 20:45 Source: patient Mode of arrival: ambulatory Limitations: no limitations History of Present Illness HPI Narrative: 42-year-old female with history of asthma and is a nonsmoker. Here for complaint having pain to her right calf and off the past few weeks. She reports that today she had worsening pain today to the area she denies any trauma to the area. Reports increased pain with ambulation. She denies any swelling to the area. No erythema. No increased temperature. Patient is currently on control. she also reports that she has not had her inhaler treatment today for her asthma as her prescription got sent elsewhere. She states she has durable of a pickup prescription tomorrow. She feels like she has had needed increased effort to take breast. She denies any wheezing. No fevers no chills. She denies any shortness of breath. No chest pain. Related Data Home Medications Medication Instructions Recorded Confirmed bupropion HCl [Wellbutrin XL] 300 mg PO QDAY #0 09/28/17 04/29/18 clonazepam [Klonopin] 0.5 mg PO QPM #0 09/28/17 04/29/18 sulfasalazine 2 tab PO BID #0 09/28/17 04/29/18 ibuprofen 1 dose PO PRN PRN 04/29/18 04/29/18 montelukast [Singulair] 10 mg PO QPM 04/29/18 04/29/18 oxycodone-acetaminophen 1 tab PO Q4H PRN 04/29/18 04/29/18 Previous Rx's Medication Instructions Recorded etonogestrel-ethinyl estradiol 1 units VAGINAL SI #1 units 10/17/17 [NuvaRing] ciprofloxacin HCl 500 mg PO BID #14 tab 04/29/18 metronidazole 500 mg PO TID #21 tab 04/29/18 Allergies Allergy/AdvReac Type Severity Reaction Status Date / Time No Known Allergies Allergy Uncoded 02/06/18 12:49 Review of Systems <HUDSNO Saavedra - Last Filed: 07/19/18 22:31> Constitutional Denies chills, Denies fever(s), Denies lethargy and Denies weakness Eyes Denies change in vision, Denies eye discharge, Denies irritation and Denies loss of vision ENT Ears, Nose, Mouth, and Throat: Denies change in voice, Denies neck pain, Denies sore throat and Denies throat swelling Cardiovascular Denies chest pain, Denies irregular heart rhythm, Denies lightheadedness, Denies palpitations and Denies orthopnea Respiratory Reports as per HPI and Denies wheezing Gastrointestinal Gastrointestinal: Denies abdominal pain, Denies change in bowel habits, Denies diarrhea, Denies nausea and Denies vomiting Genitourinary Denies hematuria, Denies flank pain, Denies urinary incontinence and Denies urinary urgency Musculoskeletal Denies neck pain Comments: Pain to right calf Integumentary/Breasts Denies pruritus, Denies erythema, Denies rash and Denies wounds Neurologic Denies confusion, Denies loss of vision and Denies weakness Psychiatric Denies anxiety, Denies confusion, Denies depression, Denies homicidal ideation and Denies suicidal ideation Endocrine Denies palpitations Hematologic/Lymphatic Denies easy bruising Allergic/Immunologic Denies urticaria, Denies throat swelling and Denies wheezing Exam <HUDSON Saavedra - Last Filed: 07/19/18 22:31> Initial Vital Signs Initial Vital Signs: Vital Signs Temperature 97.2 F L 07/19/18 20:37 Pulse Rate 96 H 07/19/18 20:37 Respiratory Rate 18 07/19/18 20:37 Blood Pressure 129/72 07/19/18 20:37 Pulse Oximetry 95 07/19/18 20:37 Const General: cooperative and well developed Nutritional Appearance: well nourished Orientation: alert, awake, oriented x3 and not confused [facility] Mouth: oral mucosae normal and oropharynx normal Eyes Conjunctivae: conjunctivae normal Sclera: sclerae normal Pupils: PERRL EOM: EOM intact bilaterally Chest Chest: normal inspection of the chest Resp Effort & Inspection: normal respiratory effort, able to speak in complete sentences, no respiratory distress and no use of accessory muscles Auscultation: clear to auscultation bilaterally, no rales, no rhonchi and no wheezes Cardio Rate: regular rate Rhythm: regular rhythm Heart Sounds: no click, no gallops, no murmurs and no rubs Pulses: normal peripheral pulses Skin General: no rashes or lesions noted, No jaundice and No petechiae Neuro General: alert, oriented x3, gait normal and no focal motor deficits Speech: speech normal Extrem Other: tenderness to palpation to right calf area. No swelling. No erythema not warm to the touch. Distal sensation is intact. Distal pulses are intact. Distal range of motion is intact. Homans sign positive <DO Dionne Reyes Last Filed: 07/20/18 05:37> Initial Vital Signs Initial Vital Signs: Vital Signs Temperature 97.2 F L 07/19/18 20:37 Pulse Rate 96 H 07/19/18 20:37 Respiratory Rate 18 07/19/18 20:37 Blood Pressure 129/72 07/19/18 20:37 Pulse Oximetry 95 07/19/18 20:37 Course <HUDSON Saavedra - Last Filed: 07/19/18 22:31> Orders Ordered: ED Orders 07/19/18 20:53 US periph venous low extrem rt Stat 07/19/18 21:18 Complete Blood Count AUTO DIFF Stat Comprehensive Metabolic Panel Stat Discontinued Medications Albuterol/Ipratropium (Duoneb) 3 ml INH NOW ONE Stop: 07/19/18 20:54 Last Admin: 07/19/18 21:19 Dose: 3 ml Vital Signs - 8 hr 07/19/18 22:06 Pulse Rate 78 Respiratory Rate 16 Blood Pressure 124/81 Pulse Oximetry 99 <DO Dionne Reyes Last Filed: 07/20/18 05:37> Orders Ordered: ED Orders 07/19/18 20:53 US periph venous low extrem rt Stat 07/19/18 21:18 Complete Blood Count AUTO DIFF Stat Comprehensive Metabolic Panel Stat Discontinued Medications Albuterol/Ipratropium (Duoneb) 3 ml INH NOW ONE Stop: 07/19/18 20:54 Last Admin: 07/19/18 21:19 Dose: 3 ml Vital Signs - 8 hr 07/19/18 22:06 Pulse Rate 78 Respiratory Rate 16 Blood Pressure 124/81 Pulse Oximetry 99 MDM - Extremity Injury (Lower) <HUDSON Saavedra - Last Filed: 07/19/18 22:31> Lab Data Result diagrams: 07/19/18 21:18 07/19/18 21:18 Lab Results 07/19/18 07/19/18 Range/Units 21:18 21:18 WBC 6.9 (4.5-11.0) X10^3/uL RBC 3.88 L (4.0-5.2) X10^6/uL Hgb 11.8 L (12.0-16.0) g/dL Hct 34.6 L (36-46) % MCV 89.3 (80-100) fL MCH 30.6 (26-34) PG MCHC 34.2 (30-36) % RDW 13.0 (11.6-14.8) % Plt Count 241 (150-400) X10^3/uL Neut % (Auto) 55.6 (50-75) % Lymph % (Auto) 34.0 (25-40) % [place] % (Auto) 7.2 (3-14) % Eos % (Auto) 2.9 (2-4) % Baso % (Auto) 0.3 (0-2) % Neut # (Auto) 3800 (7672-3832) /uL Sodium 141 (137-145) mmol/L Potassium 3.5 (3.4-5.1) mmol/L Chloride 105 (98-107) mmol/L Carbon Dioxide 25 (22-32) mmol/L BUN 7 (7-17) mg/dL Creatinine 0.70 (0.52-1.04) mg/dL Estimated GFR > 60.0 (>60) mL/min BUN/Creatinine Ratio 10.0 (6-22) Glucose 125 H (70-100) mg/dL Calcium 8.6 (8.4-10.2) mg/dL Total Bilirubin 0.3 (0.2-1.3) mg/dL AST 22 (14-36) IU/L ALT 24 (9-52) IU/L Alkaline Phosphatase 69 (38-126) U/L Total Protein 6.2 L (6.3-8.2) g/dL Albumin 3.5 (3.5-5.0) g/dL Globulin 2.7 (1.7-4.1) g/dL Albumin/Globulin Ratio 1.3 (1.0-2.8) Imaging Data Venous US: Radiologist's impression: [address] [address] Ultrasound Report Signed Patient: Sana Qureshi LMR#: [id number] : 1975Acct:[id number] Age/Sex: 42 / FDate of Service: 07/19/18 Loc: ED Accession Number: [id number] Procedure: US periph venous low extrem rt Ordering Provider: Avtar Oliva PROCEDURE: US PERIPH VENOUS LOW EXTREM RT INDICATIONS: Pain to right calf on off for past several weeks TECHNIQUE: Real-time imaging, as well as color and pulse Doppler interrogation, were performed of the lower extremity deep veins from the inguinal ligament to the popliteal fossa. COMPARISON: None. FINDINGS: The deep veins are normally compressible, and free of intraluminal thrombus. Color and pulse Doppler demonstrate normal phasic intraluminal flow. There is normal augmentation response to distal compression maneuver. IMPRESSION: No evidence of deep vein thrombosis involving the right lower extremity. Dictated by: Jesusita Reza MD, PhD on 07/19/2018 at 21:32 Approved by: Jesusita Reza MD, PhD on 07/19/2018 at 21:33 MDM Narrative Medical decision making narrative: CBC and Chem panel were obtained were unremarkable. Doppler ultrasound right lower extremity was obtained was negative for any blood clots. Patient better after having nebulizer treatment. will treat for sprain into the right calf muscle. [id number] ibuprofen as needed for any discomfort. Rest area. Follow up with primary care provider next week. Use currently prescribed medications for as as directed. For any worsening symptoms return emergency room. <Lisa Jeffries, - Last Filed: 07/20/18 05:37> Lab Data Lab Results 07/19/18 07/19/18 Range/Units 21:18 21:18 WBC 6.9 (4.5-11.0) X10^3/uL RBC 3.88 L (4.0-5.2) X10^6/uL Hgb 11.8 L (12.0-16.0) g/dL Hct 34.6 L (36-46) % MCV 89.3 (80-100) fL MCH 30.6 (26-34) PG MCHC 34.2 (30-36) % RDW 13.0 (11.6-14.8) % Plt Count 241 (150-400) X10^3/uL Neut % (Auto) 55.6 (50-75) % Lymph % (Auto) 34.0 (25-40) % [place] % (Auto) 7.2 (3-14) % Eos % (Auto) 2.9 (2-4) % Baso % (Auto) 0.3 (0-2) % Neut # (Auto) 3800 (5515-7882) /uL Sodium 141 (137-145) mmol/L Potassium 3.5 (3.4-5.1) mmol/L Chloride 105 (98-107) mmol/L Carbon Dioxide 25 (22-32) mmol/L BUN 7 (7-17) mg/dL Creatinine 0.70 (0.52-1.04) mg/dL Estimated GFR > 60.0 (>60) mL/min BUN/Creatinine Ratio 10.0 (6-22) Glucose 125 H (70-100) mg/dL Calcium 8.6 (8.4-10.2) mg/dL Total Bilirubin 0.3 (0.2-1.3) mg/dL AST 22 (14-36) IU/L ALT 24 (9-52) IU/L Alkaline Phosphatase 69 (38-126) U/L Total Protein 6.2 L (6.3-8.2) g/dL Albumin 3.5 (3.5-5.0) g/dL Globulin 2.7 (1.7-4.1) g/dL Albumin/Globulin Ratio 1.3 (1.0-2.8) Discharge Plan Departure Patient Disposition: Home Clinical Impression: Strain of muscle of posterior right lower leg Discharge Date/Time: 07/19/18 22:10 Interventions: ED Discharge Assessment Last Done: 07/19/18 22:06 Instructions: DI for Calf Muscle Strain Activity Restrictions/Additional Instructions: laboratory results today were unremarkable. Ultrasound was negative for any clots to the right lower extremity. Signs and symptoms presents muscle strain. Use [id number] ibuprofen as needed for any discomfort. Rest area. Plenty of fluids. Follow up with primary care provider next week. Use currently prescribed asthma medications as directed. For any worsening symptoms return emergency room. Prescriptions: No Action bupropion HCl [Wellbutrin XL] 300 MG tablet extended release 24 hr 300 mg PO QDAY Qty: 0 RF: 0 clonazepam [Klonopin] 0.5 MG tablet 0.5 mg PO QPM Qty: 0 RF: 0 sulfasalazine 500 MG tablet 2 tab PO BID Qty: 0 RF: 0 etonogestrel-ethinyl estradiol [NuvaRing] 1 EACH ring 1 units Vaginal SI Qty: 1 RF: 11 ibuprofen 200 mg Tablet 1 dose PO PRN PRN (Reason: Pain, Mild) RF: 0 montelukast [Singulair] 10 mg Tablet 10 mg PO QPM RF: 0 oxycodone-acetaminophen 5-325 mg tablet 1 tab PO Q4H PRN (Reason: Pain, Severe) RF: 0 metronidazole 500 mg tablet 500 mg PO TID Qty: 21 RF: 0 ciprofloxacin HCl 500 mg tablet 500 mg PO BID Qty: 14 RF: 0 Referrals: Gm Leonardo DO [Primary Care Provider] - <Lisa Jeffries DO - Last Filed: 07/20/18 05:37> Cosign ED Attending Cosignature Attestation: I was immediately available in the department for consultation. Documentation has been reviewed. I agree with assessment and plan.
--- NOTE | 2018-07-19 21:13 | PC.NURSE ---
pt denies trauma or injury to leg. positive CMS distally. ambulatory into ed.
[2018-07-19] MEDS: ALBUTEROL/IPRATROPIUM 3 ML AMPUL INH (21:19)
[2018-07-19 21:23] LABS: Add Manual Diff / Slide Review NO; Basophils Percent Auto 0.3 % (0-2); Eosinophils Percent Auto 2.9 % (2-4); Hematocrit 34.6 % (36-46); Hemoglobin 11.8 g/dL (12.0-16.0); Mean Corpuscular HGB Conc 34.2 % (30-36); Mean Corpuscular Hemoglobin 30.6 PG (26-34); Mean Corpuscular Volume 89.3 fL (80-100); Monocytes Percent Auto 7.2 % (3-14); Neutrophils Absolute Auto 3800 /uL (3000-5900); Neutrophils Percent Auto 55.6 % (50-75); Platelet Count 241 X10^3/uL (150-400); Red Blood Cell Count 3.88 X10^6/uL (4.0-5.2); White Blood Cell Count 6.9 X10^3/uL (4.5-11.0)
[2018-07-19 21:32] VITALS: BP 153/73; PULSE 78; RESP 16; O2SAT 100
[2018-07-19 21:36] LABS: Alanine Aminotransferase 24 IU/L (9-52); Albumin 3.5 g/dL (3.5-5.0); Albumin Globulin Ratio 1.3 (1.0-2.8); Alkaline Phosphatase 69 U/L (38-126); Aspartate Aminotransferase 22 IU/L (14-36); Bilirubin Total 0.3 mg/dL (0.2-1.3); Blood Urea Nitrogen 7 mg/dL (7-17); Calcium 8.6 mg/dL (8.4-10.2); Carbon Dioxide 25 mmol/L (22-32); Chloride 105 mmol/L (98-107); Estimated Glomerular Filt Rate > 60.0 mL/min (>60); Globulin 2.7 g/dL (1.7-4.1); Glucose 125 mg/dL (70-100); HEMOLYSIS < 15 (0-50); Potassium 3.5 mmol/L (3.4-5.1); Sodium 141 mmol/L (137-145); Total Protein 6.2 g/dL (6.3-8.2)
--- NOTE | 2018-07-19 21:37 | PC.NURSE ---
pt states i feel better, it always helps. I have one prescribed to me at home but it ran out. pt referring to ramandeep.
[2018-07-19 22:06] VITALS: BP 124/81; PULSE 78; RESP 16; O2SAT 99
== END 2018-07-19 22:10 | disposition home or self-care (01) ==
PROVIDERS: Emergency Provider Nurse Practitioner Family; Family Provider Family Medicine; PCP Family Medicine
DX: S86.111A Strain of other muscle(s) and tendon(s) of posterior muscle group at lower leg level, right leg, initial encounter (principal)
CPT/HCPCS: 36415; 80053; 85025; 93971; 99283; 99284